=== PATIENT | male | born 1950 | race Asian ===

== ENCOUNTER 2017-03-21 15:47 | Emergency (ER) | payer OTHER ==
[~2017-03-21] VITALS: Ht 172.7 cm; Wt 70.5 kg
[2017-03-21 16:01] LABS: GLUCOSE,POINT OF CARE 124 MG/DL (70-110)
[2017-03-21] MEDS ORDERED: SITA100 PO (16:28)
[2017-03-21] MEDS ORDERED: GLIM4 PO (16:28)
[2017-03-21] MEDS ORDERED: ASPI-556 PO (16:28)
[2017-03-21] MEDS ORDERED: NITR.4 SL (16:28)
[2017-03-21] MEDS ORDERED: SIMV-261 PO (16:28)
[2017-03-21] MEDS ORDERED: METF850T2 PO (16:28)
[2017-03-21] MEDS ORDERED: INSNOV SQ (16:28)
[2017-03-21] MEDS ORDERED: ATEN25TA PO (16:28)
[2017-03-21] MEDS ORDERED: PIOG15TA6 PO (16:28)
[2017-03-21] MEDS ORDERED: IBUPROFEN 600 MG TABLET PO ONE (17:30)
[2017-03-21 18:20] VITALS: BP 141/83
== END 2017-03-21 18:42 | disposition home or self-care (01) ==
LOC: EMS 15:50
DX: S62.522A Displaced fracture of distal phalanx of left thumb, initial encounter for closed fracture (principal); S83.91XA Sprain of unspecified site of right knee, initial encounter; E11.9 Type 2 diabetes mellitus without complications; E78.00 Pure hypercholesterolemia, unspecified; I10 Essential (primary) hypertension; Z79.4 Long term (current) use of insulin; Z79.82 Long term (current) use of aspirin; V13.4XXA Pedal cycle driver injured in collision with car, pick-up truck or van in traffic accident, initial encounter; Y93.55 Activity, bike riding; Y92.410 Unspecified street and highway as the place of occurrence of the external cause; Y99.8 Other external cause status
CPT/HCPCS: 29505; 82962; 99284